=== PATIENT | female | born 1945 | race Caucasian/White ===

== ENCOUNTER 2020-12-28 06:26 | Outpatient (RCR) | payer MEDICARE ==
[~2020-12-28] VITALS: Ht 162.6 cm; Wt 98.6 kg
[2020-12-28] MEDS ORDERED: RT-ALBUINH INH ×2 (13:41)
[2020-12-28] MEDS ORDERED: OLOP2.5D6 OP ×2 (13:41)
[2020-12-28] MEDS ORDERED: APIX2.5T PO ×2 (13:41)
[2020-12-28] MEDS ORDERED: ACET-2267 PO ×2 (13:41)
[2020-12-28] MEDS ORDERED: DULO30CA49 PO ×2 (13:41)
[2020-12-28] MEDS ORDERED: TRIA1CAP4 PO ×2 (13:41)
[2020-12-28] MEDS ORDERED: MV-M1TAB20 PO ×2 (13:41)
[2020-12-28] MEDS ORDERED: ARIP2TAB3 PO ×2 (13:41)
[2020-12-28] MEDS ORDERED: OXYB-52 PO ×2 (13:41)
[2020-12-28] MEDS ORDERED: PANT40TA52 PO ×2 (13:41)
[2020-12-28] MEDS ORDERED: EZET1TAB65 PO ×2 (13:41)
[2020-12-28] MEDS ORDERED: FLUT9.9S NS ×2 (13:41)
[2020-12-28] MEDS ORDERED: BUDE10.2 IH ×2 (13:41)
[2020-12-28] MEDS ORDERED: AMLO-250 PO ×2 (13:41)
[2020-12-28] MEDS ORDERED: CELE-63 PO ×2 (13:41)
== END 2020-12-28 14:01 | disposition home or self-care (01) ==
LOC: PREOP 06:26
PROVIDERS: ATTEND Specialist
DX: Z01.818 Encounter for other preprocedural examination (principal)

== ENCOUNTER 2020-12-31 07:44 | Day surgery (SDC) | payer MEDICARE, MEDICAID ==
[~2020-12-31] VITALS: Ht 162 cm; Wt 98.6 kg
[~2020-12-31 07:44] MED LIST: ACET-2267 PO; AMLO-250 PO; APIX2.5T PO; ARIP2TAB3 PO; BUDE10.2 IH; CELE-63 PO; DULO30CA49 PO; EZET1TAB65 PO; FLUT9.9S NS; MV-M1TAB20 PO; OLOP2.5D6 OP; OXYB-52 PO; PANT40TA52 PO; RT-ALBUINH INH; TRIA1CAP4 PO
[2020-12-31 08:00] VITALS: BP 177/79
[2020-12-31] MEDS ORDERED: TROPICAMIDE 1% OPH SOLN (MYDRIACYL) 15 ML BTL OU PRN (08:15)
[2020-12-31] MEDS ORDERED: TETRACAINE 0.5% OPHTH SOLN 4 ML BTL (SINGLE DOSE ONLY) OU PRN (08:15)
[2020-12-31] MEDS ORDERED: PHENYLEPHRINE 10% OPHTH (NEO-SYN) 5 ML BTL OU PRN (08:15)
--- NOTE | 2020-12-31 08:44 | Ophthalmologist Pre-Op Note ---
Pre-Operative Progress Note H&P Reviewed The H&P was reviewed, patient examined and no changes noted. Date H&P Reviewed: Dec 31, 2020 Time H&P Reviewed: 08:43 Pre-Op Dx Secondary Cataract, Right Eye CARMEL ABRNARD MD Dec 31, 2020 08:44
--- NOTE | 2020-12-31 08:44 | Ophthalmologist Pre-Op Note ---
Pre-Operative Progress Note H&P Reviewed The H&P was reviewed, patient examined and no changes noted. Date H&P Reviewed: Dec 31, 2020 Time H&P Reviewed: 08:25 Pre-Op Dx Secondary Cataract, Right Eye CARMEL BARNARD MD Dec 31, 2020 08:44
--- NOTE | 2020-12-31 08:45 | Ophthalmology Operative Report ---
YAG Capsulotomy PREOPERATIVE DIAGNOSIS: Secondary Cataract Left Eye POSTOPERATIVE DIAGNOSIS: Secondary Cataract Left Eye PROCEDURE: YAG Capsulotomy, left eye SURGEON: Kaleb Barnard ANESTHESIA: Topical anesthesia COMPLICATIONS: None ESTIMATED BLOOD LOSS: Minimal DESCRIPTION OF PROCEDURE: After proper informed consent was obtained, the patient's, a 75 female left eye received one drop of Tropicamide and one drop of Tetracaine. The patient was then placed at the YAG laser and using a power of [3.5 ] millijoules and [ 21] bursts were used to fashion a central capsulotomy. The patient tolerated the procedure well without complications. KALEB BARNARD MD Dec 31, 2020 08:45
== END 2020-12-31 08:45 ==
LOC: SDC 07:44
PROVIDERS: ATTEND Specialist
DX: H26.492 Other secondary cataract, left eye (principal); Z90.710 Acquired absence of both cervix and uterus; F41.9 Anxiety disorder, unspecified; F32.9 Major depressive disorder, single episode, unspecified; G47.00 Insomnia, unspecified; F17.210 Nicotine dependence, cigarettes, uncomplicated; Z79.899 Other long term (current) drug therapy; Z88.5 Allergy status to narcotic agent; Z88.8 Allergy status to other drugs, medicaments and biological substances; Z80.1 Family history of malignant neoplasm of trachea, bronchus and lung